=== PATIENT | female | born 1975 | race African-American/Black ===

== ENCOUNTER 2019-08-29 23:40 | Emergency (ER) | payer SELFPAY ==
[~2019-08-29] VITALS: Ht 177.8 cm; Wt 110.7 kg
[2019-08-30] MEDS ORDERED: ONDANSETRON 4 MG/2 ML VIAL IV ONE (00:15)
[2019-08-30] MEDS ORDERED: HYDROMORPHONE 1 MG/1 ML DISP.SYRIN IV ONE (00:15)
[2019-08-30] MEDS ORDERED: HYDROMORPHONE 1 MG/1 ML DISP.SYRIN ONE (00:24)
[2019-08-30] MEDS ORDERED: ONDANSETRON 4 MG/2 ML VIAL ONE (00:25)
[2019-08-30 00:30] LABS: BASOPHILS # (AUTO) 0.1 K/uL (0.0-8.0); BASOPHILS % (AUTO) 1.5 % (0.0-2.0); EOSINOPHILS # (AUTO) 0.2 K/uL (0.0-0.7); EOSINOPHILS % (AUTO) 5.2 % (0.0-7.0); HEMATOCRIT 36.8 % (31.2-41.9); LYMPHOCYTES # (AUTO) 1.6 K/uL (20.0-40.0); LYMPHOCYTES % (AUTO) 34.5 % (20.5-51.5); MEAN CORPUSCULAR HEMOGLOBIN 27.2 uug (24.7-32.8); MEAN CORPUSCULAR HGB CONC 33 g/dL (32.3-35.6); MEAN CORPUSCULAR VOLUME 83.3 fL (75.5-95.3); MONOCYTES # (AUTO) 0.5 K/uL (2.0-10.0); MONOCYTES % (AUTO) 10.1 % (0.0-11.0); NEUTROPHILS # (AUTO) 2.3 K/uL (1.8-8.9); NEUTROPHILS % (AUTO) 48.7 % (38.5-71.5); PLATELET COUNT (AUTO) 300 K/uL (179-408); RED BLOOD CELL COUNT(AUTO) 4.42 MIL/uL (3.63-4.92); WHITE BLOOD COUNT (AUTO) 4.6 K/uL (3.8-11.8)
[2019-08-30 00:51] LABS: BILIRUBIN,DIRECT 0.1 mg/dL (0.0-0.2); BILIRUBIN,TOTAL 0.2 mg/dL (0.2-1.0); CREATININE 0.9 mg/dL (0.6-1.3); POTASSIUM 4.2 mmol/L (3.5-5.1); TOTAL PROTEIN, SERUM 6.9 g/dL (6.4-8.2)
[2019-08-30] MEDS ORDERED: IV NORMAL SALINE 250 ML IV ONE (01:01)
[2019-08-30] MEDS ORDERED: IOHEXOL 300MG/ML 100 ML INFUS..BTL ONE (01:01)
[2019-08-30] MEDS ORDERED: SWABABLE VALVE TRANSFER SET EA MC ONE (01:01)
--- NOTE | 2019-08-30 01:23 | NUR ---
PATIENT BACK FROM CT. NOTED NOT IN ANY DISTRESS.
--- NOTE | 2019-08-30 02:25 | NUR ---
DR QUINTERO MADE PATIENT AWARE OF TEST RESULTS WILL DC HOME.
[2019-08-30 02:30] VITALS: BP 132/79
== END 2019-08-30 02:34 | disposition home or self-care (01) ==
LOC: ER 23:46
DX: G89.18 Other acute postprocedural pain (principal); R10.30 Lower abdominal pain, unspecified; N93.9 Abnormal uterine and vaginal bleeding, unspecified; Z88.6 Allergy status to analgesic agent
CPT/HCPCS: 36415; 74177; 80048; 80076; 83690; 85025; 85730; 96374; 96375; 99285; J1170; J2405; Q9967; A4663; J7050